=== PATIENT | female | born 1990 | race Caucasian/White ===

== ENCOUNTER 2020-06-17 08:21 | Inpatient (IN) ==
[2020-06-17 08:38] VITALS: BMI 24.1
[2020-06-17] MEDS ORDERED: LR 1000 ML IV 1,000 ML IV ONE ×3 (08:43→10:09)
[2020-06-17 09:10] LABS: BASOPHILS % (AUTO) 0.3 % (0.2-1.0); EOSINOPHILS # (AUTO) 0.1 x10^3/uL (0.0-0.2); EOSINOPHILS % (AUTO) 0.5 % (0.9-2.9); HEMATOCRIT 37.4 % (36.0-47.0); HEMOGLOBIN 12.4 g/dL (12.0-16.0); LYMPHOCYTES # (AUTO) 2.7 X10^3/uL (1.3-2.9); LYMPHOCYTES % (AUTO) 19.7 % (21.0-51.0); MEAN CORPUSCULAR HEMOGLOBIN 27.4 pg (27.0-34.0); MEAN CORPUSCULAR HGB CONC 33.2 g/dL (33.0-35.0); MEAN CORPUSCULAR VOLUME 82.6 fL (80.0-100.0); MEAN PLATELET VOLUME 10.2 fL (7.4-11.0); MONOCYTES # (AUTO) 0.7 x10^3/uL (0.3-0.8); MONOCYTES % (AUTO) 4.9 % (0.0-13.0); NEUTROPHILS # (AUTO) 10.2 x10^3/uL (2.2-4.8); NEUTROPHILS % (AUTO) 74.6 % (42.0-75.0); PLATELET COUNT 222 X10^3/uL (150.0-450.0); RED BLOOD COUNT 4.53 X10^6/uL (3.5-5.4); RED CELL DISTRIBUTION WIDTH 12.9 % (11.6-16.5); WHITE BLOOD COUNT 13.6 X10^3/uL (3.6-10.0)
[2020-06-17 09:15] LABS: BILIRUBIN,URINE NEGATIVE (NEGATIVE); BLOOD/HEMOGLOBIN,URINE 2+ (NEGATIVE); GLUCOSE, URINE NEGATIVE (NEGATIVE); KETONES,URINE NEGATIVE (NEGATIVE); LEUKOCYTE ESTERASE ,URINE 3+ (NEGATIVE); NITRITES,URINE NEGATIVE (NEGATIVE); PH,URINE 6.5 (5.0 - 8.0); PROTEIN,URINE 1+ (NEGATIVE); UROBILINOGEN,URINE NORMAL (NORMAL)
[2020-06-17] MEDS ORDERED: BETADINE SOLN ONE (09:15)
[2020-06-17] MEDS ORDERED: PITOCIN ONE (09:15)
[2020-06-17] MEDS ORDERED: D5 1/2 NS 1000 ML 1,000 ML IV ONE (09:15)
[2020-06-17] MEDS ORDERED: PITOCIN IVP ONE (09:15)
[2020-06-17] MEDS ORDERED: D5 1/2 NS 1000 ML 1,000 ML IV SCH (09:15)
[2020-06-17] MEDS ORDERED: AMPICILLIN VIAL 1 GRAM ONE (09:16)
[2020-06-17] MEDS ORDERED: D5LR 1L W PITOCIN 10 UNITS/L 10 UNITS/1,000 ML BAG IV ONE (09:16)
[2020-06-17] MEDS ORDERED: D5 1/2 NS 1L W PITOCIN 20 UNITS/L 20 UNITS/1,000 ML BAG IV ONE (09:16)
[2020-06-17] MEDS ORDERED: AMPICILLIN VIAL 2 GRAM ONE (09:17)
[2020-06-17] MEDS ORDERED: NS 100 ML IV 200 ML IV ONE (09:17)
[2020-06-17 09:18] LABS: ALANINE AMINOTRANSFERASE 17 Units/L (12-78); ALBUMIN 2.9 g/dL (3.4-5.0); ALKALINE PHOSPHATASE 169 Units/L (46-116); ASPARTATE AMINO TRANSFERASE 19 Units/L (15-37); BLOOD UREA NITROGEN 10 mg/dL (7-18); CALCIUM 9.2 mg/dL (8.5-10.1); CARBON DIOXIDE 22.1 mmol/L (21-32); CHLORIDE 100 mmol/L (98-107); COR CA(FOR HYPOALB) 10.1 mg/dL (8.5-10.1); CREATININE 0.97 mg/dL (0.55-1.02); SODIUM 135 mmol/L (136-145); TOTAL PROTEIN 7.3 g/dL (6.4-8.2); eGFR NON BLACK RACES > 60 (>60)
[2020-06-17] MEDS ORDERED: FENTANYL INJ 100 mcg ONE (09:18)
[2020-06-17] MEDS ORDERED: FENTANYL 2 mcg/mL-ROPIV 0.1%-NS EPIDURAL 200 ML EPI ONE (09:18)
[2020-06-17 09:23] LABS: APPEARANCE,URINE HAZY (CLEAR); BACTERIA,URINE 1+ /HPF (NEGATIVE); COLOR,URINE YELLOW (YELLOW); RBC,URINE 0-2 /HPF (0-3); SQUAMOUS EPITHELIAL CELL,UR FEW /HPF (NEGATIVE)
[2020-06-17] MEDS ORDERED: AMPICILLIN VIAL 2 GRAM 2 G in NS 100 ML IV + SPIKE MINIBAG* 100 ML IV SCH (09:30)
[2020-06-17] MEDS ORDERED: EPHEDRINE SULFATE INJ ONE (10:08)
[2020-06-17] MEDS ORDERED: D5LR 1L W PITOCIN 10 UNITS/L 10 UNITS/1,000 ML BAG IV PRN (10:45)
[2020-06-17] MEDS ORDERED: BETADINE SURGICAL SCRUB ONE (12:01)
[2020-06-17] MEDS ORDERED: XYLOCAINE 1 % (PLAIN) ONE (12:13)
[2020-06-17] MEDS ORDERED: PHENERGAN INJ 25 MG IM PRN (12:54)
[2020-06-17] MEDS ORDERED: D5 1/2 NS 1000 ML 1,000 ML with PITOCIN 20 UNITS IV SCH ×2 (13:00)
[2020-06-17] MEDS ORDERED: AMPICILLIN VIAL 1 GRAM 1 G in NS 50 ML IV + SPIKE MINIBAG* 50 ML IV SCH (13:30)
[2020-06-17] MEDS ORDERED: AMBIEN PO PRN (13:44)
[2020-06-17] MEDS ORDERED: DERMOPLAST PAIN RELIEF SPRAY TOP PRN (13:44)
[2020-06-17] MEDS ORDERED: MILK OF MAGNESIA PO PRN (13:44)
[2020-06-17] MEDS: MOTRIN TAB 800 MG PO PRN (16:14)
[2020-06-18 06:27] LABS: HEMATOCRIT 33.2 % (36.0-47.0)
[2020-06-18] MEDS ORDERED: BETADINE SOLN ONE (06:33)
--- NOTE | 2020-06-18 08:23 | NOTE.PROOB ---
progress Note OB- Subjective Data Subjective: No complaints, decreased lochia. Tolerating regular diet. No N/V. Ambulating well. No dysuria. Objective Data Result Diagrams: 06/18/20 05:50 06/17/20 08:50 Objective Data: CV= RRR no MRG Lungs=CTA Bilaterally Abd=(+) BS, soft, NTND, Fundus firm/NT/ at -3 cm below umbilicus. Ext=no edema, NT, no cords Assessment Assessment: routine s/p doing well Plan (1) (spontaneous vaginal delivery): Plan: routine pp care
[2020-06-18] MEDS: PRENATAL PLUS PO SCH (08:29)
[2020-06-18] MEDS: MOTRIN TAB 800 MG PO PRN (14:11)
--- NOTE | 2020-06-19 07:24 | NOTE.PROOB ---
progress Note OB- Subjective Data Subjective: No complaints, decreased lochia. Tolerating regular diet. No N/V. Ambulating well. No dysuria. Objective Data Result Diagrams: 06/18/20 05:50 06/17/20 08:50 Objective Data: CV= RRR no MRG Lungs=CTA Bilaterally Abd=(+) BS, soft, NTND, Fundus firm/NT/ at -3 cm below umbilicus. Ext=no edema, NT, no cords Assessment Assessment: ready for d/c Plan (1) (spontaneous vaginal delivery):
[2020-06-19] MEDS: PRENATAL PLUS PO SCH (08:38)
[2020-06-19 12:13] VITALS: BP 127/77
== END 2020-06-19 13:20 | disposition home or self-care (01) | DRG 807 ==
LOC: ER 08:21 → LD 09:28 → MED/SURG 13:41
PROVIDERS: ADMIT Obstetrics & Gynecology; ATTEND Obstetrics & Gynecology